=== PATIENT | female | born 1985 | race Caucasian/White ===

== ENCOUNTER 2025-06-20 09:06 | Outpatient (CLI) | payer OTHER, SELFPAY ==
--- NOTE | ~2025-06-20 | MM_ITS ---
EXAMINATION: MM screening cinthya BI w taylor HISTORY: Screening mammogram TECHNIQUE: Craniocaudal and mediolateral oblique 3-D tomosynthesis images were obtained and synthetic 2-D images were generated. CAD analysis was submitted and interpreted. COMPARISON: No prior mammogram is available for comparison at this institution. BREAST PARENCHYMAL COMPOSITION:Not Dense. There are scattered areas of fibroglandular density. FINDINGS: No suspicious mass, calcification, or architectural distortion are identified in either breast to suggest malignancy. There has been no suspicious interval change. IMPRESSION: No mammographic evidence of malignancy. Recommend routine screening mammography in one year. BI-RADS Category 1: Negative Reviewed, dictated and finalized at location .
--- OUTSIDE RECORDS SUMMARY | 2025-06-20 09:31 | XMS_ITS | Clinical Summary ---
Author Organization [facility] [address] Address [address] [place] [address] Care Team Providers Care Electronic Gaming Device Supervisor Name Role Phone Jay Modi MD Unavailable [phone] Justice King MD Primary Care Provider [phone] Allergies No known active allergies Medications losartan (COZAAR) 50 mg tablet TAKE 1 TABLET BY MOUTH EVERY DAY 90 tablet 1 5 Active levothyroxine (SYNTHROID) 150 mcg tablet TAKE 1 TABLET (150 MCG TOTAL) BY MOUTH IN THE PHYSIOTHERAPY AIDE BEFORE BREAKFAST 90 tablet 1 5 Active omeprazole (PriLOSEC) 40 mg capsule TAKE 1 CAPSULE (40 MG TOTAL) BY MOUTH DAILY. 90 capsule 3 5 Active rosuvastatin (CRESTOR) 40 mg tablet TAKE 1 TABLET BY MOUTH EVERY DAY 90 tablet 2 5 Active Active Problems Problem Noted Date Diagnosed Date Numbness and tingling of right arm 12/17/2022 Gastroesophageal reflux disease without esophagi tis 12/17/2022 External hemorrhoid 12/17/2022 Mixed hyperlipidemia 12/12/2022 Assessment & Plan (12/12/2022 11:29 AM PRODUCT MARKETING CONSULTANT): Check lipid profile and adjust dose of Zetia and or rosuvastatin accordingly JYOTI (obstructive sleep apnea) 04/01/2022 Class 2 obesity due to exces s calories with body mass index (BMI) of 37.0 to 37.9 in adult 02/25/2022 Assessment & Plan (12/12/2022 11:28 AM PRODUCT MARKETING CONSULTANT): Continue working on diet and exercise Continue phentermine Assessment & Plan (08/07/2022 2:57 PM CDT): Diet and exercise Increase Phentermine to 37.5 mg daily Assessment & Plan (04/10/2022 4:01 PM CDT): Importance of diet and exercise was discussed Start phentermine LIZETTE (generalized anxiety disorder) 08/15/2021 Acquired hypothyroidism 08/15/2021 Assessment & Plan (12/12/2022 11:28 AM PRODUCT MARKETING CONSULTANT): Will check TFTs and will adjust dose of levothyroxine is indicated Assessment & Plan (08/07/2022 2:58 PM CDT): Well controlled, chronic Continue Levothyroxine 175 mcg daily Assessment & Plan (04/10/2022 4:02 PM CDT): I explained to the patient the goal of treatment for hypothyroidism is a normal TSH The treatment with L T4 versus L T4/T3 combination was also discussed I have recheck TFTs today TPO antibodies I might consider adding T3 Absolute anemia 08/15/2021 Chronic fatigue 08/15/2021 Assessment & Plan (04/10/2022 4:04 PM CDT): Probably related to sleep apnea, for which she will start treatment with CPAP machine I advised the patient on keeping a log of her symptoms while started on the phentermine to see if make any difference to her symptoms. Adding L T3 to herhypothyroidism might help some. Diastolic dysfunction 08/06/2021 Iron deficiency 06/22/2021 Overview (12/17/2022): B21 NML Depression 06/20/2021 Left bundle branch hemiblock 06/20/2021 Severe episode of recurrent major depressive disorder, without psychotic features 06/19/2021 Overview (12/17/2022): Last Assessment & Plan: Condition: symptomatic, likely related to sleep apnea No recent mental health visit. Advised to follow up Medications: Not currently being managed with medications If taking medications, do not stop treatment without consulting healthcare provider. If symptoms worsen or do not improve/stabilize, notify health care provider right away. If thoughts of harming self or others notify health care provider immediately &/or seek urgent/emergent care including calling [facility] ( ) or [email or web address]. Follow up in one month with Psychologist/Counselor/SupportGroup/Psychiatrist and PCP Vitamin D deficiency 09/08/2018 Overview (12/17/2022): Last Assessment & Plan: Condition: stable Follow up in: as directed by your primary care provider or specialist Resolved Problems Problem Noted Date Diagnosed Date Resolved Date Neck pain 12/17/2022 09/06/2024 Other abnormal glucose 09/11/202209/06 Essential (primary) hypertension 09/10/2022 03/03/2024 History of depression 12/12/20212023 Atherosclerotic heart diseas e of [place] coronary artery without angina pectoris 09/19/2021 06/24/2023 Overview (12/17/2022): Last Assessment & Plan: Condition: stable Follow up in: three months Cardiovascular symptoms 08/28/2021 08/12/2022 Encounters Date Type Department Care Team Description 06/15/2025 Telephone [facility] Medical [facility] Family Medicine at [address] [place] [address] Justice King MD Medical Question/Miscellaneo us 05/08/2025 1:30 PM CDT Office Visit [facility] Family Medicine at [address] [place] [address] Justice King MD Bilateral lower extremity edema (Primary Dx); Rash and other nonspecific skin eruption 04/06/2025 Results Follow-Up [facility] Family Medicine at [address] [place] [address] Justice King MD SCAN - LABS 04/04/2025 Orders Only [facility] Health Information Management [address] [place] [address] Justice King MD 04/03/2025 1:45 PM CDT Office Visit [facility] Family Medicine at [address] [place] [address] Justice King MD Annual physical exam (Primary Dx); Mixed hyperlipidemia; Acquired hypothyroidism; Pre-diabetes; Acute cough from Last 3 Months Immunizations Immunization Administration Dates Next Due Influenza, Unspecified 09/06/2024(Deferr ed: Patient Refused),08/02/2024(Deferred: Patient Refused),08/02/2023(Deferred: Patient Refused),09/21/2022(Deferred: Patient Refused),12/25/2021(Deferred: Patient Refused),12/12/2021(Deferred: Patient Refused),08/15/2021(Deferred: Patient Refused),11/02/2020(Deferred: Patient Refused) Tdap 08/29/2011 Medical History Medical History Date Comments Depression Hyperlipidemia Hypothyroidism Sleep apnea Family History Medical History Relation Name Comments Cancer Father Pancreatic cancer and cirrho sis of the liver Heart failure Mother Relation Name Status Comments Father Pancreatic cancer and cirrhosis of the [place] Alive Mother Alive Social History Tobacco Use Types Packs/Day Years Used Date Smoking Tobacco: Former Cigarettes Smokeless Tobacco: Never AUDIT-C Answer Date Recorded Q1: How often do you have a drink containing alcohol? Monthly or less 05/08/2025 Q2: How many drinks containi ng alcohol do you have on a typical day when you are drinking? Patient does not drink Frequency of Binge Drinking Not on file 05/2025 PHQ-2 Answer Date Recorded PHQ-2 Total Score (If total score is 3 or more points, staff should administer the PHQ-9) 0 03/03/2024 Comments Unknown Sex and Gender Information Value Date Recorded Sex Assigned at Not on file Legal Sex Female 7:49 PM PRODUCT MARKETING CONSULTANT Gender Identity Not on file Sexual Orientation Not on file Obstetrics History Last Filed Vital Signs Vital Sign Reading Time Taken Comments Blood Pressure 110/70 05/08/2025 1:23 PM CDT Pulse 104 05/08/2025 1:23 PM CDT Temperature 37.3 C (99.1 F) 05/08/2025 1:23 PM CDT Respiratory Rate 18 05/08/2025 1:23 PM CDT Oxygen Saturation 96% 05/08/2025 1:23 PM CDT Inhaled Oxygen Concentration - - Weight 99.9 kg (220 lb 3.2 oz) 05/08/2025 1:23 P M CDT Height 165.1 cm (5' 5) 05/08/2025 1:23 PM CDT Body Mass Index 36.64 05/08/2025 1:23 PM CDT Plan of Treatment Health Maintenance Due Date Last Done Comments Albumin Creatinine Ratio, Urine 1983 Breast Cancer Screening-Mammogram 1983 Cervical Cancer Screening 1983 Hepatitis C Screening 1983 Dilated Eye Exam 1983 Foot Exam 1983 Varicella Vaccines (1 of 2 - 13+ 2-dose series) 02/05/1996 Hepatitis B Screening 2001 Pneumococcal vaccine <65 (1 of 2 - PCV) 2002 HPV Vaccines (1 - 3-dose SCD M series) 2010 DTaP/Tdap/Td Vaccine (2 - Td or Tdap) 08/29/2021 08/29/2011 Hemoglobin A1C 03/02/2025 09/02/2024, 06/03, 12/11/2022 Depression Screening 03/03/2025 03/03/2024, 06/24/2023, 08/07/2022, Additional history exists Influenza Vaccine (#1) 2025 Lipid Panel 09/02/2025 09/02/2024, 06/03, 12/11/2022, Additional history exists eGFR 09/02/2025 09/02/2024, 06/03, 12/11/2022, Additional history exists Regular Well Visit/Exam 18-64 04/03/2026 04/03/2025 Procedures Procedure Name Priority Date/Time Associated Diagnosis Comments SCAN - LABS 04/04/2025 9:17 PM CDT COMPREHENSIVE METABOLIC PANEL Routine 09/02/2024 Essential hypertension IFG (impaired fasting glucose) HEMOGLOBIN A1C Routine 09/02/2024 IFG (impaired fasting glucose) LIPID PANEL Routine 09/02/2024 Mixed hyperlipidemia from Last 3 Months or Most Recently Relevant to Health Maintenance Results * SCAN - LABS (04/04/2025 9:17 PM CDT) Justice King MD Final Result * Hemoglobin A1c (09/02/2024) SCRIBED Hemoglobin A1c 5.7 4.0 - 6.0 % EXTERNAL LAB Blood 09/02/2024 Justice King MD LAB BLOOD ORDERABLES Final Re sult Performing Organization Address City/[facility]/ZIP Co de Phone Number EXTERNAL LAB * (ABNORMAL) Lipid panel (09/02/2024) Pathologist [facility] SCRIBED Cholesterol, Total 136(A) 140 - 199 EXTERNAL LAB SCRIBED HDL 52 <40 - . EXTERNAL LAB SCRIBED LDL 63 0 - 130 EXTERNAL LAB SCRIBED Triglycerides 103 0 - 150 EXTERNAL LAB Blood 09/02/2024 Justice King MD LAB BLOOD ORDERABLES Final Re sult EXTERNAL LAB * (ABNORMAL) Comprehensive metabolic panel (09/02/2024) SCRIBED Sodium 140 137 - 145 mmol/L EXTERNAL LAB SCRIBED Potassium 4.3 3.5 - 5.1 mmol/L EXTERNAL LAB SCRIBED Chloride 107 98 - 107 mmol/L EXTERNAL LAB SCRIBED Carbon Dioxide 26 22 - 30 mmol/L EXTERNAL LAB SCRIBED Anion Gap 11.3(A) 14 - 22 mmol/L EXTERNAL LAB SCRIBED Urea Nitrogen (BUN) 13 8 - 19 mg/dl EXTERNAL LAB SCRIBED Creatinine 0.88 0.66 - 1.25 mg/dl EXTERNAL LAB SCRIBED Glucose 103(A) 70 - 99 mg/dl EXTERNAL LAB SCRIBED Calcium 9.1 8.4 - 10.2 mg/dl EXTERNAL LAB SCRIBED Bilirubin 0.40 0.20 - 1.30 mg/dl EXTERNAL LAB SCRIBED Plasma Protein 6.9 6.3 - 8.2 g/dl EXTERNAL LAB SCRIBED Albumin 4.1 3.4 - 5.0 g/dl EXTERNAL LAB SCRIBED Alkaline Phosphatase 73 38 - 126 Units/L EXTERNAL LAB SCRIBED Alanine Transaminase (ALT) 32 0 - 35 Units/L EXTERNAL LAB SCRIBED Aspartate Transaminase (AST) 37 15 - 37 Units/L EXTERNAL LAB SCRIBED eGFR in NonAfrican German >60 <60 - . EXTERNAL LAB Blood 09/02/2024 us Justice King MD LAB BLOOD ORDERABLES Final Re sult EXTERNAL LAB from Last 3 Months or Most Recently Relevant to Health Maintenance Insurance Care Teams Electronic Gaming Device Supervisor Relationship Specialty [place] [id number] [address] PCP - General Family Medicine 07/13/23 [place] [address] [address] Consulting Physician Cardiology 09/30/22
--- OUTSIDE RECORDS SUMMARY | 2025-06-20 09:31 | XMS_ITS | Encounter Summary ---
Author Organization [facility] Healthcare Address [address] [place] [address] Care Team Providers Care Pre Planning Advisor Name Role Phone Jay Modi MD Unavailable [phone] Justice King MD Primary Care Provider [phone] Reason for Visit * Reason Onset Date Comments Medical Question/Miscellaneous 06/15/2025 Encounter Details Date Type Department Care Team (Late st Contact Info) Description 06/15/2025 Telephone [facility] Family Medicine at [address] [place] [address] Justice King MD [address] [place] [address] Medical Question/Miscellaneous Social History Tobacco Use Types Packs/Day Years [...] on file Legal Sex Female 7:49 PM AUTOMOTIVE ACCESSORY INSTALLER Gender Identity Not on file Sexual Orientation Not on file documented as of this encounter Miscellaneous Notes * Telephone Encounter - Vianca Shaver - 06/15/2025 9:05 AM CDT Medical Question/Miscellaneous Caller???s Concern: [facility]ley @ [facility] Mammography Dept calling to verify the patients insurance. Does message need to be routed? No documented in this encounter Plan of Treatment Not on file documented as of this encounter Visit Diagnoses Not on filedocumented in this encounter Care Teams Pre Planning Advisor Relationship Specialty [place] [id number] [address] PCP - General Family Medicine 07/13/23 [place] [address] [address] Consulting Physician Cardiology 09/30/22 documented as of this encounter
== END 2025-06-20 09:07 | disposition home or self-care (01) ==
LOC: ANHFOHIMG 09:10
PROVIDERS: PCP Family Medicine; Visit Provider Family Medicine
DX: Z12.31 Encounter for screening mammogram for malignant neoplasm of breast (principal)
CPT/HCPCS: 36415; 77063; 77067; 80061; 83036

== ENCOUNTER 2025-06-20 09:53 | Outpatient (CLI) | payer OTHER, SELFPAY ==
--- OUTSIDE RECORDS SUMMARY | 2025-06-20 10:33 | XMS_ITS | Encounter Summary ---
Author Organization [facility] Healthcare Address [address] [place] [address] Care Team Providers Care Chest Painting Leader Name Role Phone Jay Modi MD Unavailable [phone] Justice King MD Primary Care Provider [phone] Reason for Visit * Reason Onset Date Comments Medical Question/Miscellaneous 06/15/2025 Encounter Details Date Type Department Care Team (Late st Contact Info) Description 06/15/2025 Telephone [facility] Family Medicine at [address] [place] [address] Justice King MD [address] [place] [address] Medical Question/Miscellaneous Social History Tobacco Use [...] on file Legal Sex Female 7:49 PM TELESALES ADVISOR Gender Identity Not on file Sexual Orientation Not on file documented as of this encounter Miscellaneous Notes * Telephone Encounter - Vianca Shaver - 06/15/2025 9:05 AM CDT Medical Question/Miscellaneous Caller???s Concern: [facility] @ [facility] Mammography Dept calling to verify the patients insurance. Does message need to be routed? No documented in this encounter Plan of Treatment Not on file documented as of this encounter Visit Diagnoses Not on filedocumented in this encounter Care Teams Chest Painting Leader Relationship Specialty [place] [address] [address] PCP - General Family Medicine 07/13/23 [place] [address] [address] [address] Consulting Physician Cardiology 09/30/22 documented as of this encounter
--- OUTSIDE RECORDS SUMMARY | 2025-06-20 10:33 | XMS_ITS | Clinical Summary ---
Author Organization [facility] [address] [place] Address [address] [place] [address] Care Team Providers Care Pipe Turner Name Role Phone Jay Modi MD Unavailable [phone] Justice King MD Primary Care Provider [phone] Allergies No known active allergies Medications losartan (COZAAR) 50 mg tablet TAKE 1 TABLET BY MOUTH EVERY DAY 90 tablet 1 5 Active levothyroxine (SYNTHROID) 150 mcg tablet TAKE 1 TABLET (150 MCG TOTAL) BY MOUTH IN THE MELTER OPERATOR BEFORE BREAKFAST 90 tablet 1 5 Active [...] 12/12/2022 Assessment & Plan (12/12/2022 11:29 AM FINGERPRINT CLASSIFIER): Check lipid profile and adjust dose of Zetia and or rosuvastatin accordingly JYOTI (obstructive sleep apnea) 04/01/2022 Class 2 obesity due to exces s calories with body mass index (BMI) of 37.0 to 37.9 in adult 02/25/2022 Assessment & Plan (12/12/2022 11:28 AM FINGERPRINT CLASSIFIER): Continue working on diet and exercise Continue phentermine Assessment & Plan (08/07/2022 2:57 PM CDT): Diet and exercise Increase Phentermine to 37.5 mg daily Assessment & Plan (04/10/2022 4:01 PM CDT): Importance of diet and exercise was discussed Start phentermine LIZETTE (generalized anxiety disorder) 08/15/2021 Acquired hypothyroidism 08/15/2021 Assessment & Plan (12/12/2022 11:28 AM FINGERPRINT CLASSIFIER): Will check TFTs and will adjust dose [...] immediately &/or seek urgent/emergent care including calling [facility] ( ) or [email or web address]. Follow up in one month with Psychologist/Counselor/SupportGroup/Psychiatrist [...] depression 12/12/20212023 Atherosclerotic heart diseas e of [place] coronary artery without angina pectoris 09/19/2021 06/24/2023 Overview (12/17/2022): Last Assessment & Plan: Condition: stable Follow up in: three months Cardiovascular symptoms 08/28/2021 08/12/2022 Encounters Date Type Department Care Team Description 06/15/2025 Telephone [facility] Medical [facility] Family Medicine at [address] [place] [address] Justice King MD Medical Question/Miscellaneo us 05/08/2025 1:30 PM CDT Office Visit [facility] Family Medicine at [address] [place] [address] Justice King MD Bilateral lower extremity edema (Primary Dx); Rash and other nonspecific skin eruption 04/06/2025 Results Follow-Up [facility] Family Medicine at [address] [place] [address] Justice King MD SCAN - LABS 04/04/2025 Orders Only [facility] Health Information Management [address] [place] [address] Justice King MD 04/03/2025 1:45 PM CDT Office Visit [facility] Family Medicine at [address] [place] [address] Justice King MD Annual physical exam (Primary [...] on file Legal Sex Female 7:49 PM FINGERPRINT CLASSIFIER Gender Identity Not on file Sexual Orientation [...] ORDERABLES Final Re sult Performing Organization Address City/[facility]/ZIP Co de Phone Number EXTERNAL LAB * (ABNORMAL) Lipid panel (09/02/2024) Pathologist [facility] SCRIBED Cholesterol, Total 136(A) 140 - 199 [...] Units/L EXTERNAL LAB SCRIBED eGFR in NonAfrican Maldivian >60 <60 - . EXTERNAL LAB Blood 09/02/2024 us Justice King MD LAB BLOOD ORDERABLES Final Re sult EXTERNAL LAB from Last 3 Months or Most Recently Relevant to Health Maintenance Insurance Care Teams Pipe Turner Relationship Specialty [place] [address] [address] PCP - General Family Medicine 07/13/23 [place] [address] [address] Consulting Physician Cardiology 09/30/22
[2025-06-20 10:54] LABS: Hemoglobin A1C 5.7 % (<5.7)
[2025-06-20 11:05] LABS: Cholesterol 142 mg/dL (0-200); HDL Direct 47 mg/dL; Triglycerides 115 mg/dL (<150)
== END 2025-06-20 09:54 | disposition home or self-care (01) ==
PROVIDERS: PCP Family Medicine; Visit Provider Family Medicine
DX: E78.2 Mixed hyperlipidemia (principal); R73.03 Prediabetes
CPT/HCPCS: 36415; 80061; 83036